=== PATIENT | male | born 1930 | race Caucasian/White ===

== ENCOUNTER 2017-02-02 20:54 | Emergency (ER) | payer MEDICARE, OTHER ==
--- NOTE | 2017-02-02 21:39 | ED ---
Altered Mental Status HPI - General Chief Complaint: Altered Mental Status Stated Complaint: Altered Time Seen by Provider: 02/02/17 21:32 Source: patient, RN notes reviewed Mode of arrival: ambulatory Limitations: no limitations - History of Present Illness Initial Comments: This an 86-year-old male presents emergency department via EMS from [facility] for evaluation of confusion. Patient has baseline confusion secondary to his dementia. Family was concerned that he seemed to be more confused than usual. Patient states he has no specific complaints. Patient had no reported fever. Patient denies cough, chest pain, headache, dizziness, blurred vision, nausea, vomiting diarrhea or constipation, dysuria or hematuria. Patient states he feels that he has his normal self. - Related Data Home Medications Medication Instructions Recorded Confirmed Allopurinol [Zyloprim] 100 mg PO DAILY 09/04/14 02/02/17 Aspirin 81 mg PO DAILY 09/04/14 02/02/17 Lisinopril [Prinivil] 20 mg PO BID@0800,199909/04/14 02/02/17 Acetaminophen [Tylenol] 500 mg PO DAILY 12/06/14 02/02/17 Multivitamin/Iron/Folic Acid 1 tab PO DAILY 04/02/15 02/02/17 [Centrum Complete Multivit Tab] glipiZIDE [Glucotrol] 5 mg PO BID 04/30/15 02/02/17 traMADol HCL [Ultram] 50 mg PO Q4HR PRN 04/30/15 02/02/17 Levothyroxine Sodium [Synthroid] 25 mcg PO DAILY 06/11/15 02/02/17 Pravastatin Sodium 80 mg PO HS 06/11/15 02/02/17 Cholecalciferol [Vitamin D3] 2,000 unit PO DAILY 02/02/17 02/02/17 Ferrous Sulfate [Feosol] 325 mg PO DAILY 02/02/17 02/02/17 Furosemide [Lasix] 40 mg PO DAILY 02/02/17 02/02/17 Magnesium Hydroxide [Milk of 2,400 mg PO Q72H PRN 02/02/17 02/02/17 Magnesia] Metoprolol Tartrate [Lopressor] 50 mg PO BID 02/02/17 02/02/17 Hdhfkkoy-Qvhpfqayff-Otli Oint 1 applic TOPICAL 02/02/17 02/02/17 [Triple Antibiotic Ointment] Sennosides-Docusate Sodium 1 tab PO BID PRN 02/02/17 02/02/17 [Senokot-S] sitaGLIPtin [Januvia] 50 mg PO DAILY 02/02/17 02/02/17 Previous Rx's Medication Instructions Recorded Apixaban [Eliquis] 2.5 mg PO BID tablet 12/26/14 Docusate [Colace] 100 mg PO DAILY cap 04/25/15 Tamsulosin [Flomax] 0.4 mg PO DAILY cap.er.24h 04/25/15 Allergies Allergy/AdvReac Type Severity Reaction Status Date / Time codeine Allergy Rash/Hives Verified 02/02/17 21:30 Review of Systems ROS Statement: Those systems with pertinent positive or pertinent negative responses have been documented in the HPI. ROS Other: All systems not noted in ROS Statement are negative. Past Medical History Past Medical History: Atrial Fibrillation, Atrial Flutter, Coronary Artery Disease (CAD), Dementia, Diabetes Mellitus, Hyperlipidemia, Hypertension, Memory Impairment, Myocardial Infarction (DE), Osteoarthritis (OA), Prostate Disorder, Renal Disease, Skin Disorder, Thyroid Disorder, Vascular Disorder Additional Past Medical History / Comment(s): ALZHEIMER'S, SACRAL PRESSURE ULCER., GOUT, PVD/PAD. , PT USES WHEELCHAIR BUT CAN WALK -USES WALKER., Last Myocardial Infarction Date:: 4614-0640? History of Any Multi-Drug Resistant Organisms: MRSA Date of last positivie culture/infection: 06/06/15 MDRO Source:: Back-Sacral Area Past Surgical History: Appendectomy, Coronary Bypass/CABG, Heart Catheterization , Tonsillectomy Additional Past Surgical History / Comment(s): 04-21-15 RT FEMORAL TO POST TIBIAL IN SITU BYPASS GRAFT., KWADWO, 2000 Triple CABG , MITRAL VALVE REPAIR. Past Anesthesia/Blood Transfusion Reactions: No Reported Reaction Past Psychological History: No Psychological Hx Reported Smoking Status: Never smoker Past Alcohol Use History: None Reported Past Drug Use History: None Reported - Past Family History Father Family Medical History: No Reported History Mother Family Medical History: No Reported History Brother(s) Family Medical History: No Reported History Sister(s) Family Medical History: No Reported History Daughter(s) Family Medical History: No Reported History Son(s) Family Medical History: No Reported History General Exam Limitations: no limitations General appearance: alert, in no apparent distress Head exam: Present: atraumatic, normocephalic, normal inspection Eye exam: Present: normal appearance, PERRL, EOMI. Absent: scleral icterus, conjunctival injection, periorbital swelling ENT exam: Present: normal exam, normal oropharynx, mucous membranes moist Neck exam: Present: normal inspection, full ROM. Absent: tenderness, meningismus, lymphadenopathy Respiratory exam: Present: normal lung sounds bilaterally. Absent: respiratory distress, wheezes, rales, rhonchi, stridor Cardiovascular Exam: Present: regular rate, normal rhythm, normal heart sounds. Absent: systolic murmur, diastolic murmur, rubs, gallop, clicks GI/Abdominal exam: Present: soft, normal bowel sounds. Absent: distended, tenderness, guarding, rebound, rigid Neurological exam: Present: alert, CN II-XII intact. Absent: oriented X3 Skin exam: Present: warm, dry, intact, normal color. Absent: rash Course Vital Signs 02/02/17 02/02/17 21:17 22:58 Temperature 97.9 F 98.9 F Pulse Rate 73 63 Respiratory 20 17 Rate Blood Pressure 135/74 117/70 O2 Sat by Pulse 95 95 Oximetry Medical Decision Making - Medical Decision Making 76-year-old male present emergency from for increased confusion. Patient lab work is at his baseline at this time. Patient had repeat troponin secondary to minimal elevation and which second troponin was within normal limits.. Patient' s confusion is related to his dementia at this time. Case discussed with Dr. bocanegra. Patient we discharged back to [facility]. - Lab Data Result diagrams: 02/02/17 21:32 02/02/17 21:32 Lab Results 02/02/17 02/02/17 02/02/17 Range/Units 21:32 21:32 21:32 WBC 9.1 (3.8-10.6) k/uL RBC 3.76 L (4.30-5.90) m/uL Hgb 12.5 L (13.0-17.5) gm/dL Hct 35.6 L (39.0-53.0) % MCV 94.7 (80.0-100.0) fL MCH 33.3 (25.0-35.0) pg MCHC 35.1 (31.0-37.0) g/dL RDW 12.7 (11.5-15.5) % Plt Count 120 L (150-450) k/uL PT (9.0-12.0) sec INR (<1.2) APTT (22.0-30.0) sec Sodium 141 (137-145) mmol/L Potassium 4.9 (3.5-5.1) mmol/L Chloride 104 (98-107) mmol/L Carbon Dioxide 28 (22-30) mmol/L Anion Gap 9 mmol/L BUN 49 H (9-20) mg/dL Creatinine 1.61 H (0.66-1.25) mg/dL Est GFR (MDRD) Af Amer 49 (>60 ml/min/1.73 sqM) Est GFR (MDRD) Non-Af 41 (>60 ml/min/1.73 sqM) Glucose 108 H (74-99) mg/dL Calcium 9.7 (8.4-10.2) mg/dL Total Bilirubin 0.8 (0.2-1.3) mg/dL AST 41 (17-59) U/L ALT 40 (21-72) U/L Alkaline Phosphatase 121 (38-126) U/L Total Creatine Kinase 836 H (55-170) U/L CK-MB (CK-2) 15.1 H* (0.0-2.4) ng/mL CK-MB (CK-2) Rel Index 1.8 Troponin I 0.037 H* (0.000-0.034) ng/mL Total Protein 7.0 (6.3-8.2) g/dL Albumin 4.0 (3.5-5.0) g/dL Urine Color Urine Appearance (Clear) Urine pH (5.0-8.0) Ur Specific [place] (1.001-1.035) Urine Protein (Negative) Urine Glucose (UA) (Negative) Urine Ketones (Negative) Urine Blood (Negative) Urine Nitrite (Negative) Urine Bilirubin (Negative) Urine Urobilinogen (<2.0) mg/dL Ur Leukocyte Esterase (Negative) 02/02/17 02/02/17 02/03/17 Range/Units 21:32 21:51 00:33 WBC (3.8-10.6) k/uL RBC (4.30-5.90) m/uL Hgb (13.0-17.5) gm/dL Hct (39.0-53.0) % MCV (80.0-100.0) fL MCH (25.0-35.0) pg MCHC (31.0-37.0) g/dL RDW (11.5-15.5) % Plt Count (150-450) k/uL PT 10.8 (9.0-12.0) sec INR 1.1 (<1.2) APTT 25.3 (22.0-30.0) sec Sodium (137-145) mmol/L Potassium (3.5-5.1) mmol/L Chloride (98-107) mmol/L Carbon Dioxide (22-30) mmol/L Anion Gap mmol/L BUN (9-20) mg/dL Creatinine (0.66-1.25) mg/dL Est GFR (MDRD) Af Amer (>60 ml/min/1.73 sqM) Est GFR (MDRD) Non-Af (>60 ml/min/1.73 sqM) Glucose (74-99) mg/dL Calcium (8.4-10.2) mg/dL Total Bilirubin (0.2-1.3) mg/dL AST (17-59) U/L ALT (21-72) U/L Alkaline Phosphatase (38-126) U/L Total Creatine Kinase (55-170) U/L CK-MB (CK-2) (0.0-2.4) ng/mL CK-MB (CK-2) Rel Index Troponin I 0.034 (0.000-0.034) ng/mL Total Protein (6.3-8.2) g/dL Albumin (3.5-5.0) g/dL Urine Color Yellow Urine Appearance Clear (Clear) Urine pH 5.5 (5.0-8.0) Ur Specific [place] 1.013 (1.001-1.035) Urine Protein Trace H (Negative) Urine Glucose (UA) Negative (Negative) Urine Ketones Negative (Negative) Urine Blood Negative (Negative) Urine Nitrite Negative (Negative) Urine Bilirubin Negative (Negative) Urine Urobilinogen <2.0 (<2.0) mg/dL Ur Leukocyte Esterase Negative (Negative) Disposition Clinical Impression: Dementia, Chronic renal disease Disposition: HOME SELF-CARE Condition: Stable Instructions: Dementia (ED) Additional Instructions: Please return to the Emergency Department if symptoms worsen or any other concerns. Referrals: Kaiden Khan MD [Primary Care Provider] - 1-2 days Time of Disposition: 01:51
[2017-02-02 22:20] LABS: Appearance,Urine Clear (Clear); Bilirubin,Urine Negative (Negative); Glucose,Urine (UA) Negative (Negative); Ketones,Urine Negative (Negative); Leukocyte Esterase,Urine Negative (Negative); Nitrite,Urine Negative (Negative); PH, Urine 5.5 (5.0-8.0); Protein,Urine Trace (Negative); Specific Gravity,Urine 1.013 (1.001-1.035); UA Billing (MACRO vs. MICRO) CHEM; Urobilinogen,Urine <2.0 mg/dL (<2.0)
[2017-02-02 22:29] LABS: CH 31.7; CHCM 33.6; HCT 35.6 % (39.0-53.0); HDW 2.31; HGB 12.5 gm/dL (13.0-17.5); MCH 33.3 pg (25.0-35.0); MCHC 35.1 g/dL (31.0-37.0); MCV 94.7 fL (80.0-100.0); Mean Platelet Volume 10.1; RBC 3.76 m/uL (4.30-5.90); RDW 12.7 % (11.5-15.5); WBC 9.1 k/uL (3.8-10.6)
[2017-02-02 22:30] LABS: Calcium 9.7 mg/dL (8.4-10.2); Potassium 4.9 mmol/L (3.5-5.1); Total Bilirubin 0.8 mg/dL (0.2-1.3)
[2017-02-02 22:36] LABS: INR 1.1 (<1.2); Partial Thromboplastin Time 25.3 sec (22.0-30.0); Prothrombin Time 10.8 sec (9.0-12.0)
[2017-02-02 22:58] VITALS: TEMP 98.9
[2017-02-02 23:10] LABS: Creatine Kinase MB 15.1 ng/mL (0.0-2.4); Troponin I 0.037 ng/mL (0.000-0.034)
--- NOTE | 2017-02-02 23:14 | XR ---
EXAM: XR Chest, 2 Views CLINICAL HISTORY: Reason: AMS TECHNIQUE: Frontal and lateral views of the chest. COMPARISON: Chest x-ray 04/23/15 FINDINGS: Lungs: Unremarkable. No consolidation. Pleural space: Unremarkable. No pneumothorax. Heart: Stable mild cardiac enlargement. Status post cardiac valve replacement. Mediastinum: Unfolded thoracic aorta. Bones/joints: No acute abnormality. IMPRESSION: No acute findings. Stable mild cardiac enlargement.
--- NOTE | 2017-02-02 23:30 | CT ---
EXAM: CT Head Without Intravenous Contrast CLINICAL HISTORY: Reason: pain TECHNIQUE: Axial computed tomography images of the head/brain without intravenous contrast. Coronal and sagittal reformats were obtained. CTDI is 57.40 mGy and DLP is 1081.60 mGy-cm. This CT exam was performed using one or more of the following dose reduction techniques: automated exposure control, adjustment of the mA and/or kV according to patient size, and/or use of iterative reconstruction technique. COMPARISON: CT head 08/05/15 FINDINGS: Brain: No intracranial hemorrhage, mass effect, or midline shift. Global volume loss, appropriate for age. Periventricular white matter hypodensities, likely chronic small vessel disease. Ventricles: Serosal and ventricular prominence secondary to global volume loss. Bones/joints: Unremarkable. No acute fracture. Vasculature: Prominent vascular calcifications. Sinuses: Diffuse paranasal sinus mucosal thickening. Mastoid air cells: Unremarkable as visualized. No mastoid effusion. IMPRESSION: 1. No acute intracranial abnormality. 2. Global volume loss, appropriate for age. 3. Periventricular white matter hypodensities, likely chronic small vessel disease. 4. Diffuse paranasal sinus disease.
[2017-02-03 02:01] VITALS: BP 152/84
[2017-02-03 03:10] VITALS: PULSE 71; RESP 16
== END 2017-02-03 03:19 | disposition home or self-care (01) ==
LOC: EC 20:54
DX: F03.90 Unspecified dementia, unspecified severity, without behavioral disturbance, psychotic disturbance, mood disturbance, and anxiety (principal); E11.22 Type 2 diabetes mellitus with diabetic chronic kidney disease; I12.9 Hypertensive chronic kidney disease with stage 1 through stage 4 chronic kidney disease, or unspecified chronic kidney disease; N18.9 Chronic kidney disease, unspecified; I48.91 Unspecified atrial fibrillation; I25.10 Atherosclerotic heart disease of native coronary artery without angina pectoris; E78.5 Hyperlipidemia, unspecified; I25.2 Old myocardial infarction; E07.9 Disorder of thyroid, unspecified; M19.90 Unspecified osteoarthritis, unspecified site; Z79.82 Long term (current) use of aspirin; Z79.84 Long term (current) use of oral hypoglycemic drugs; Z79.899 Other long term (current) drug therapy; Z88.5 Allergy status to narcotic agent
CPT/HCPCS: 36415; 70450; 71020; 80053; 81003; 82550; 82553; 84484; 85027; 85610; 85730; 99285

== ENCOUNTER 2017-03-02 02:36 | Inpatient (IN) | payer MEDICARE, OTHER ==
[2017-03-02 05:56] LABS: Calcium 9.7 mg/dL (8.4-10.2); Potassium 4.9 mmol/L (3.5-5.1); Total Bilirubin 0.6 mg/dL (0.2-1.3); Total Protein 6.9 g/dL (6.3-8.2)
[2017-03-02 05:58] LABS: Creatine Kinase MB 2.7 ng/mL (0.0-2.4)
[2017-03-02 06:14] LABS: Basophils # (A) 0.1 k/uL (0-0.2); Basophils % (A) 1 %; CH 32.1; CHCM 32.6; Eosinophils # (A) 0.4 k/uL (0-0.7); Eosinophils % (A) 5 %; HCT 39.1 % (39.0-53.0); HDW 2.41; HGB 12.6 gm/dL (13.0-17.5); Luc # (Auto) 0.15; Luc % (Auto) 2; Lymphocytes # (A) 0.8 k/uL (1.0-4.8); Lymphocytes % (A) 10 %; MCHC 32.3 g/dL (31.0-37.0); Mean Platelet Volume 9.4; Monocytes # (A) 0.6 k/uL (0-1.0); Monocytes % (A) 7 %; Neutrophils % (A) 75 %; RBC 3.95 m/uL (4.30-5.90); WBC (Perox) 7.82
--- NOTE | 2017-03-02 06:51 | CT ---
CT HEAD WITHOUT CONTRAST CT C SPINE WITHOUT CONTRAST INDICATION: Fall, pain TECHNIQUE: CT acquisition is performed through the brain and cervical spine. Sagittal and coronal reformatted images are provided. No IV contrast is administered. DOSE INFORMATION: CT HEAD: CTDIvol 57.40 mGy; DLP 1133.30 mGy-cm. CT C SPINE: CTDIvol 10.54 mGy; DLP 564.70 mGy-cm. One or more of the following dose reduction techniques were used: automated exposure control, adjustment of the mA and/or kV according to patient size, use of iterative reconstruction technique. COMPARISON: CT head 02/02/17. FINDINGS: CT HEAD: There is paranasal sinus mucosal thickening and clear mastoid air cells. There is mild high left parietal scalp swelling. There is no evidence of skull fracture. There is no evidence of acute intracranial hemorrhage or abnormal extra-axial fluid collection. There is no mass effect or midline shift. There are involutional changes with prominence of the sulci and basal cisterns. The ventricles are normal. There is patchy hypoattenuation in the periventricular and deep cerebral white matter, likely related to chronic small vessel ischemic disease. Chronic lacunar infarct in the right thalamus. More-white matter differentiation appears preserved. CT C SPINE: There is straightening of the cervical spine. There is no evidence of acute fracture or subluxation. Vertebral body height and alignment are maintained. Craniocervical and atlantoaxial relationships are maintained. Cervical spinal canal is adequately patent. There is degenerative disc disease at C5-C6 and C6-C7. There is no prevertebral soft tissue swelling. Lung apices are clear. IMPRESSION: 1. No evidence of acute intracranial process. Mild high left parietal scalp swelling without skull fracture. 2. No evidence of acute fracture in the cervical spine.
--- NOTE | 2017-03-02 07:52 | CT ---
INDICATION: Possible aneurysm TECHNIQUE: CT acquisition is performed through the chest per institutional CT angiogram protocol following the administration of 80 mL Visipaque 320 IV contrast. Sagittal and coronal reformatted images and MIP reconstructed images are provided. DOSE INFORMATION: CTDIvol 206.13 mGy; DLP 1226 mGy-cm. One or more of the following dose reduction techniques were used: automated exposure control, adjustment of the mA and/or kV according to patient size, use of iterative reconstruction technique. COMPARISON: None. FINDINGS: There has been previous midline sternotomy and CABG with mitral valve prosthesis. There is cardiomegaly without pericardial effusion. The main pulmonary artery is normal in caliber. Aortic arch demonstrates conventional branching anatomy. There is thoracic aortic atherosclerosis. There is an aneurysm of the ascending thoracic aorta measuring 5.1 cm. There is ectasia of the remainder of the thoracic aorta which measures 4 cm at the arch, 4.2 cm in the proximal descending portion, and 3.7 cm in the distal descending portion. In the descending thoracic aorta there is differential contrast density with lower density in the anterior lumen and hyperdensity in the posterior lumen, visible on images 26 through 48 of series 5. This most likely represents mixing artifact versus type B dissection which is considered less likely. The abdominal aorta is heavily calcified but without aneurysm. Small multicompartment mediastinal lymph nodes are not significant by size criteria. Expiratory phase images with atelectatic changes of the lungs. No pleural effusion or pneumothorax. Visualized upper abdomen demonstrates cholelithiasis without evidence of acute cholecystitis. There are no acute osseous findings. IMPRESSION: 1. 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 Normal caliber abdominal aorta. Extensive atherosclerosis. 2. Probable mixing artifact versus, less likely, type B dissection of the descending thoracic aorta. 3. Cardiomegaly status post CABG and mitral valve replacement.
[2017-03-02] MEDS ORDERED: MAGNESIUM HYDROXIDE 2,400 MG/10 ML CUP PO PRN (10:42)
[2017-03-02] MEDS ORDERED: SENNOSIDES-DOCUSATE SODIUM 1 EACH TAB PO PRN (10:42)
[2017-03-02 11:26] VITALS: BMI 24.3
--- NOTE | 2017-03-02 11:52 | P.GSCN ---
History of Present Illness Consult date: 03/02/17 Reason for Consult: Aortic aneurysm, treatment recommendations. Requesting physician: Matthew Amaya History of present illness: This 86-year-old gentleman with a medical history of chronic atrial fibrillation , coronary artery disease with previous bypass surgery, chronic kidney disease, peripheral vascular disease, Alzheimer's dementia, diabetes, hypertension, and hyperlipidemia presented to the emergency room last night from [facility] after an unwitnessed fall. Apparently he is on anticoagulation for chronic atrial fibrillation and the attending physician wanted a CT scan to make sure the patient didn't have any traumatic bleeding. CT scan of the brain done in the emergency room demonstrated no acute process, no fractures. CT of the thorax demonstrated an ascending aneurysm measuring 5.1 cm and a descending thoracic aneurysm with questionable Type B dissection per the radiologist's read. Cardiothoracic surgery was consulted regarding treatment recommendations. Review of Systems ROS unobtainable: due to mental status Past Medical History Past Medical History: Atrial Fibrillation, Atrial Flutter, Coronary Artery Disease (CAD), Heart Failure, Dementia, Diabetes Mellitus, Hyperlipidemia, Hypertension, Memory Impairment, Myocardial Infarction ([place]), Osteoarthritis (OA) , Prostate Disorder, Renal Disease, Skin Disorder, Thyroid Disorder, Vascular Disorder Additional Past Medical History / Comment(s): ALZHEIMER'S, SACRAL PRESSURE ULCER., GOUT, PVD/PAD. , PT USES WHEELCHAIR BUT CAN WALK -USES WALKER., Last Myocardial Infarction Date:: 4396-5827? History of Any Multi-Drug Resistant Organisms: MRSA Year Discovered:: 06/06/15 MDRO Source:: Back-Sacral Area Past Surgical History: Appendectomy, Coronary Bypass/CABG, Heart Catheterization , Tonsillectomy Additional Past Surgical History / Comment(s): 04-21-15 RT FEMORAL TO POST TIBIAL IN SITU BYPASS GRAFT., [place]WADWO, 2000 Triple CABG , MITRAL VALVE REPAIR. Past Anesthesia/Blood Transfusion Reactions: No Reported Reaction Past Psychological History: No Psychological Hx Reported Smoking Status: Never smoker Past Alcohol Use History: None Reported Past Drug Use History: None Reported - Past Family History Father Family Medical History: No Reported History Mother Family Medical History: No Reported History Brother(s) Family Medical History: No Reported History Sister(s) Family Medical History: No Reported History Daughter(s) Family Medical History: No Reported History Son(s) Family Medical History: No Reported History Medications and Allergies Home Medications Medication Instructions Recorded Confirmed Type Allopurinol [Zyloprim] 100 mg PO DAILY 09/04/14 03/02/17 History Aspirin 81 mg PO DAILY 09/04/14 03/02/17 History Lisinopril [Prinivil] 20 mg PO BID@0800,2000 09/04/14 03/02/17 History Acetaminophen [Tylenol] 500 mg PO DAILY 12/06/14 03/02/17 History Apixaban [Eliquis] 2.5 mg PO BID tablet 12/26/14 03/02/17 Rx Multivitamin/Iron/Folic Acid 1 tab PO DAILY 04/02/15 03/02/17 History [Centrum Complete Multivit Tab] Docusate [Colace] 100 mg PO DAILY cap 04/25/15 03/02/17 Rx Tamsulosin [Flomax] 0.4 mg PO DAILY cap.er.24h 04/25/15 03/02/17 Rx glipiZIDE [Glucotrol] 5 mg PO BID 04/30/15 03/02/17 History traMADol HCL [Ultram] 50 mg PO Q4HR PRN 04/30/15 03/02/17 History Levothyroxine Sodium [Synthroid] 25 mcg PO DAILY 06/11/15 03/02/17 History Pravastatin Sodium 80 mg PO HS 06/11/15 03/02/17 History Cholecalciferol [Vitamin D3] 2,000 unit PO DAILY 02/02/17 03/02/17 History Ferrous Sulfate [Feosol] 325 mg PO DAILY 02/02/17 03/02/17 History Furosemide [Lasix] 40 mg PO MOWEFR 02/02/17 03/02/17 History Magnesium Hydroxide [Milk of 2,400 mg PO Q72H PRN 02/02/17 03/02/17 History Magnesia] Metoprolol Tartrate [Lopressor] 50 mg PO BID 02/02/17 03/02/17 History Sennosides-Docusate Sodium 1 tab PO BID PRN 02/02/17 03/02/17 History [Senokot-S] sitaGLIPtin [Januvia] 50 mg PO DAILY 02/02/17 03/02/17 History Allergies Allergy/AdvReac Type Severity Reaction Status Date / Time codeine Allergy Rash/Hives Verified 03/02/17 07:38 Surgical - Exam - General well developed, no distress, no pain - Eyes PERRL - Neck no masses, no bruits, trachea midline - Respiratory Lungs sounds bilaterally. Respirations even, nonlabored. Currently on 2 L nasal cannula. - Cardiovascular S1, S2 present. Irregular rate and rhythm, atrial fibrillation on telemetry. Palpable radial, DP, PT pulses bilaterally. 2-3+ pitting edema to bilateral lower extremities. - Abdomen Abdomen: soft, non tender, bowel sounds - Genitourinary Deferred - Rectum Deferred - Integumentary no rash - Neurologic disoriented, confused - Psychiatric Able to tell me the year he was born, unable to tell me his full name, his ' s name, where he is at or the current year. Results - Labs 03/02/17 03:35 03/02/17 03:35 Abnormal Lab Results - Last 24 Hours (Table) 03/02/17 03/02/17 03/02/17 Range/Units 03:35 03:35 03:35 RBC 3.95 L (4.30-5.90) m/uL Hgb 12.6 L (13.0-17.5) gm/dL Plt Count 130 L (150-450) k/uL Lymphocytes # 0.8 L (1.0-4.8) k/uL BUN 38 H (9-20) mg/dL Creatinine 1.40 H (0.66-1.25) mg/dL Glucose 140 H (74-99) mg/dL Alkaline Phosphatase 147 H (38-126) U/L CK-MB (CK-2) 2.7 H* (0.0-2.4) ng/mL Diabetes panel 03/02/17 Range/Units 03:35 Sodium 140 (137-145) mmol/L Potassium 4.9 (3.5-5.1) mmol/L Chloride 104 (98-107) mmol/L Carbon Dioxide 27 (22-30) mmol/L BUN 38 H (9-20) mg/dL Creatinine 1.40 H (0.66-1.25) mg/dL Glucose 140 H (74-99) mg/dL Calcium 9.7 (8.4-10.2) mg/dL AST 22 (17-59) U/L ALT 34 (21-72) U/L Alkaline Phosphatase 147 H (38-126) U/L Total Protein 6.9 (6.3-8.2) g/dL Albumin 3.9 (3.5-5.0) g/dL Calcium panel 03/02/17 Range/Units 03:35 Calcium 9.7 (8.4-10.2) mg/dL Albumin 3.9 (3.5-5.0) g/dL Pituitary panel 03/02/17 Range/Units 03:35 Sodium 140 (137-145) mmol/L Potassium 4.9 (3.5-5.1) mmol/L Chloride 104 (98-107) mmol/L Carbon Dioxide 27 (22-30) mmol/L BUN 38 H (9-20) mg/dL Creatinine 1.40 H (0.66-1.25) mg/dL Glucose 140 H (74-99) mg/dL Calcium 9.7 (8.4-10.2) mg/dL Adrenal panel 03/02/17 Range/Units 03:35 Sodium 140 (137-145) mmol/L Potassium 4.9 (3.5-5.1) mmol/L Chloride 104 (98-107) mmol/L Carbon Dioxide 27 (22-30) mmol/L BUN 38 H (9-20) mg/dL Creatinine 1.40 H (0.66-1.25) mg/dL Glucose 140 H (74-99) mg/dL Calcium 9.7 (8.4-10.2) mg/dL Total Bilirubin 0.6 (0.2-1.3) mg/dL AST 22 (17-59) U/L ALT 34 (21-72) U/L Alkaline Phosphatase 147 H (38-126) U/L Total Protein 6.9 (6.3-8.2) g/dL Albumin 3.9 (3.5-5.0) g/dL - Imaging CT scan - chest: report reviewed, image reviewed EKG: image reviewed Additional studies: CT of the brain reviewed Assessment and Plan (1) Chronic atrial fibrillation Current Visit: Yes Status: Acute Code(s): I48.2 - CHRONIC ATRIAL FIBRILLATION SNOMED Code(s): 875260094 (2) Hypertension Current Visit: Yes Status: Acute Code(s): I10 - ESSENTIAL (PRIMARY) HYPERTENSION SNOMED Code(s): 88220638 (3) Hyperlipidemia Current Visit: Yes Status: Acute Code(s): E78.5 - HYPERLIPIDEMIA, UNSPECIFIED SNOMED Code(s): 27721366 (4) Previous myocardial infarction older than 8 weeks Current Visit: Yes Status: Acute Code(s): I25.2 - OLD MYOCARDIAL INFARCTION SNOMED Code(s): 5257390 (5) Hypothyroidism Current Visit: Yes Status: Acute Code(s): E03.9 - HYPOTHYROIDISM, UNSPECIFIED SNOMED Code(s): 47827388 (6) Debility Current Visit: Yes Status: Acute Code(s): R53.81 - OTHER MALAISE SNOMED Code(s): 14664873 (7) Thoracic ascending aortic aneurysm Current Visit: Yes Status: Acute Code(s): I71.2 - THORACIC AORTIC ANEURYSM, WITHOUT RUPTURE SNOMED Code(s): 724094492 (8) Chronic renal disease Current Visit: No Status: Acute Code(s): N18.9 - CHRONIC KIDNEY DISEASE, UNSPECIFIED SNOMED Code(s): 875671936 (9) Dementia Current Visit: No Status: Acute Code(s): F03.90 - UNSPECIFIED DEMENTIA WITHOUT BEHAVIORAL DISTURBANCE SNOMED Code(s): 38576466 (10) Diabetes mellitus Current Visit: No Status: Acute Code(s): E11.9 - TYPE 2 DIABETES MELLITUS WITHOUT COMPLICATIONS SNOMED Code(s): 77159314 (11) PVD (peripheral vascular disease) Current Visit: No Status: Acute Code(s): I73.9 - PERIPHERAL VASCULAR DISEASE , UNSPECIFIED SNOMED Code(s): 434260074 Plan: The patient was seen and examined at the bedside. Chart/diagnostics were reviewed. The case was discussed with Dr. Sorensen of this morning. At this time we would recommend good blood pressure control and medical management. No surgical intervention warranted. May have a follow-up CT scan of the thorax in 3 months to monitor for progression. Of note, even though the patient's systolic blood pressure was elevated in the emergency room, he appears to have good control in the [facility] with noted SBP 117-130 by facility documentation. Comorbid medical conditions to be managed by primary service. Thank you Dr. Amaya for this consult. Please contact us with any questions. Time with Patient: Greater than 30
[2017-03-02 12:07] LABS: Glucose,Whole Blood 139 mg/dL (75-99)
[2017-03-02] MEDS: FUROSEMIDE 40 MG TAB PO SCH (12:20)
[2017-03-02] MEDS: METOPROLOL TARTRATE 25 MG TAB PO SCH ×2 (12:20→20:06)
[2017-03-02] MEDS: LISINOPRIL 10 MG TAB PO SCH (12:20)
--- NOTE | 2017-03-02 12:34 | P.HPIM ---
History of Present Illness H&P Date: 03/02/17 Chief Complaint: fall, change in mental status 86 years old male patient of Dr. 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 Patient is oriented 1 at baseline and requires assistance with food. He does walk with cane at his baseline. Patient presented to the emergency department from [facility] after an unwitnessed fall yesterday. Patient hit back of his head to the cabinet. Patient was sent by the attending physician for computed tomography scan. Computed tomography scan of the brain demonstrated no acute process no fracture but does have mild high left parietal scalp swelling suggestive of superficial hematoma without skull fracture. Cervical spine CT was negative for any acute process. CT of the thorax demonstrated an ascending aneurysm measuring 5.1 cm and a descending thoracic aneurysm with questionable diabetes dissection but the radiologist read. Patient was evaluated by cardiothoracic surgery who recommended medical treatment with no acute requirement of surgical treatment. On bedside evaluation, patient does not follow any commands. He answers questions yes or no. Family is not at bedside. Patient is not able to follow any commands which could be secondary to baseline confusion and worsening mental status. Unclear of the etiology of the fall neurology is consulted for possible stroke versus seizure. Further details will be obtained once the family is at bedside. Review of Systems Could not be obtained due to the mental status and patient unable to follow any instructions Past Medical History Past Medical History: Atrial Fibrillation, Atrial Flutter, Coronary Artery Disease (CAD), Heart Failure, Dementia, Diabetes Mellitus, Hyperlipidemia, Hypertension, Memory Impairment, Myocardial Infarction (IA), Osteoarthritis (OA) , Prostate Disorder, Renal Disease, Skin Disorder, Thyroid Disorder, Vascular Disorder Additional Past Medical History / Comment(s): ALZHEIMER'S, SACRAL PRESSURE ULCER., GOUT, PVD/PAD. , PT USES WHEELCHAIR BUT CAN WALK -USES WALKER., Last Myocardial Infarction Date:: [id number]? History of Any Multi-Drug Resistant Organisms: MRSA Date of last positivie culture/infection: 06/06/15 MDRO Source:: Back-Sacral Area Past Surgical History: Appendectomy, Coronary Bypass/CABG, Heart Catheterization , Tonsillectomy Additional Past Surgical History / Comment(s): 04-21-15 RT FEMORAL TO POST TIBIAL IN SITU BYPASS GRAFT., KWADWO, 2000 Triple CABG , MITRAL VALVE REPAIR. Past Anesthesia/Blood Transfusion Reactions: No Reported Reaction Past Psychological History: No Psychological Hx Reported Smoking Status: Never smoker Past Alcohol Use History: None Reported Past Drug Use History: None Reported - Past Family History Father Family Medical History: No Reported History Mother Family Medical History: No Reported History Brother(s) Family Medical History: No Reported History Sister(s) Family Medical History: No Reported History Daughter(s) Family Medical History: No Reported History Son(s) Family Medical History: No Reported History Medications and Allergies Home Medications Medication Instructions Recorded Confirmed Type Allopurinol [Zyloprim] 100 mg PO DAILY 09/04/14 03/02/17 History Aspirin 81 mg PO DAILY 09/04/14 03/02/17 History Lisinopril [Prinivil] 20 mg PO BID@0800,199909/04/14 03/02/17 History Acetaminophen [Tylenol] 500 mg PO DAILY 12/06/14 03/02/17 History Apixaban [Eliquis] 2.5 mg PO BID tablet 12/26/14 03/02/17 Rx Multivitamin/Iron/Folic Acid 1 tab PO DAILY 04/02/15 03/02/17 History [Centrum Complete Multivit Tab] Docusate [Colace] 100 mg PO DAILY cap 04/25/15 03/02/17 Rx Tamsulosin [Flomax] 0.4 mg PO DAILY cap.er.24h 04/25/15 03/02/17 Rx glipiZIDE [Glucotrol] 5 mg PO BID 04/30/15 03/02/17 History traMADol HCL [Ultram] 50 mg PO Q4HR PRN 04/30/15 03/02/17 History Levothyroxine Sodium [Synthroid] 25 mcg PO DAILY 06/11/15 03/02/17 History Pravastatin Sodium 80 mg PO HS 06/11/15 03/02/17 History Cholecalciferol [Vitamin D3] 2,000 unit PO DAILY 02/02/17 03/02/17 History Ferrous Sulfate [Feosol] 325 mg PO DAILY 02/02/17 03/02/17 History Furosemide [Lasix] 40 mg PO MOWEFR 02/02/17 03/02/17 History Magnesium Hydroxide [Milk of 2,400 mg PO Q72H PRN 02/02/17 03/02/17 History Magnesia] Metoprolol Tartrate [Lopressor] 50 mg PO BID 02/02/17 03/02/17 History Sennosides-Docusate Sodium 1 tab PO BID PRN 02/02/17 03/02/17 History [Senokot-S] sitaGLIPtin [Januvia] 50 mg PO DAILY 02/02/17 03/02/17 History Allergies Allergy/AdvReac Type Severity Reaction Status Date / Time codeine Allergy Rash/Hives Verified 03/02/17 07:38 Physical Exam Vitals: Vital Signs Temp Pulse Resp BP Pulse Ox 03/02/17 09:55 97.8 F 94 16 125/67 96 Intake and Output 03/01/17 03/02/17 03/02/17 22:59 06:59 14:59 Other: Weight 86 kg Patient Weight 03/03/17 06:59 Weight 86 kg - Constitutional General appearance: average body habitus, mild distress - EENT Eyes: abnormal pupil (1-2 mm in size), PERRLA ENT: normal oropharynx - Neck Neck: no lymphadenopathy, normal ROM, no rigidity Carotids: bilateral: upstroke delayed - Respiratory Respiratory: bilateral: CTA, negative: diminished, dullness, rales, rhonchi - Cardiovascular Rhythm: irregularly irregular Heart sounds: normal: S1, S2 Abnormal Heart Sounds: systolic murmur, no diastolic murmur leg Peripheral Edema: bilateral: Trace, 3+ dorsalis pedis Peripheral Pulses: bilateral: Normal - Gastrointestinal General gastrointestinal: no distended, normal bowel sounds, no organomegaly, soft - Neurologic Pupils are equal and reactive, patient does not follow any commands, does answer yes to all the questions, stairs at the roof. Oriented 1 at baseline Does squeeze fingers in the right hand but is unable to make any movement. 2/5 in left upper extremity and lower extremity, 3/5 in the right upper extremity and lower extremity. Patient does not wiggle his toes on command. Slight murmur noted in the lower extremities on painful stimuli. Sensory deficit could not be assessed. Gait not if assessed coordination not assessed Babinski neutral. - Musculoskeletal Musculoskeletal: generalized weakness - Psychiatric Alert but not oriented Results CBC & Chem 7: 03/02/17 03:35 03/02/17 03:35 Labs: Abnormal Lab Results - Last 24 Hours (Table) 03/02/17 03/02/17 03/02/17 Range/Units 03:35 03:35 03:35 RBC 3.95 L (4.30-5.90) m/uL Hgb 12.6 L (13.0-17.5) gm/dL Plt Count 130 L (150-450) k/uL Lymphocytes # 0.8 L (1.0-4.8) k/uL BUN 38 H (9-20) mg/dL Creatinine 1.40 H (0.66-1.25) mg/dL Glucose 140 H (74-99) mg/dL Alkaline Phosphatase 147 H (38-126) U/L CK-MB (CK-2) 2.7 H* (0.0-2.4) ng/mL Thrombosis Risk Factor Assmnt - DVT/VTE Prophylaxis DVT/VTE Prophylaxis: Mechanical Prophylaxis ordered - Choose All That Apply Any of the Below Risk Factors Present?: Yes Each Factor Represents 1 point: Medical pt on bed rest Each Risk Factor Represents 2 Points: Patient confined to bed Each Risk Factor Represents 3 Points: Age 75 years or older Other congenital or acquired thrombophilia - If yes, enter type in comment: No Thrombosis Risk Factor Assessment Total Risk Factor Score: 6 Thrombosis Risk Factor Assessment Level: High Risk Assessment and Plan Plan: #1 change in mental status with baseline dementia status post unwitnessed fall - Unclear to assess patient's baseline, no purposeful movement in any extremity - CT head was negative for any bleed but does have a hematoma in the left parietal scalp area - Neurology consulted - Seizure precaution and fall precautions - elliquis and aspirin held secondary to hematoma - Continue pravastatin - Speech evaluation - Carotid ultrasound ordered Neuro checks every 4 hours - Neurology consult #2 ascending aortic 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 #4 diabetes mellitus type 2 - Causes are 10 and glipizide while inpatient Continue insulin sliding scale #4 hyperlipidemia - Continue pravastatin 80 mg daily at bedtime #5 chronic atrial fibrillation - Patient has dementia and significant fall risk - This patient has a hematoma I would hold elliquis and aspirin while inpatient and would recommend sending patient home without continue metoprolol 75 mg by mouth twice a day for heartrate controlled #6 benign prostate enlargement continue tamsulosin daily #7 continue allopurinol 100 mg by mouth daily #8 coronary artery disease status post coronary artery bypass grafting - Hold aspirin due to hematoma, continue metoprolol, Lasix pravastatin and lisinopril - Echo ordered #Chronic pain - For tramadol for concern of seizures continue Tylenol for pain control #11 hypothyroidism continue levothyroxine #12 DVT prophylaxis continue mechanical prophylaxis #13 condition- stable #14 disposition- patient came from [facility], needs PT evalaution
[2017-03-02] MEDS: INSULIN LISPRO (humaLOG) 300 UNIT/3 ML VIAL SQ SCH ×2 (12:36→18:13)
--- NOTE | 2017-03-02 15:13 | US ---
EXAMINATION TYPE: US carotid duplex BILAT DATE OF EXAM: 03/02/2017 COMPARISON: NONE CLINICAL HISTORY: Change in mental status, exam done portable EXAM MEASUREMENTS: RIGHT: Peak Systolic Velocity (PSV) cm/sec ----- Right CCA: 96.9 ----- Right ICA: 111.4 ----- Right ECA: 143.6 ICA/CCA ratio: 1.2 RIGHT: End Diastole cm/sec ----- Right CCA: 19.8 ----- Right ICA: 19.8 ----- Right ECA: 7.9 LEFT: Peak Systolic Velocity (PSV) cm/sec ----- Left CCA: 82.5 ----- Left ICA: 157.8 ----- Left ECA: 204.8 ICA/CCA ratio: 1.9 LEFT: End Diastole cm/sec ----- Left CCA: 15.4 ----- Left ICA: 43.3 ----- Left ECA: 0.0 VERTEBRALS (direction of flow): Right Vertebral: Antegrade Left Vertebral: Antegrade Rhythm: Arrhythmia Plaque bilateral bulb Grayscale, color Doppler, spectral Doppler imaging performed of the carotid arteries. IMPRESSION: Borderline hemodynamic significant stenosis of the proximal internal carotid artery on t he left corresponding to approximately 50-69% diameter reduction by Doppler criteria. Consider rangel tid CTA or MRA for better evaluation. Cardiac arrhythmia identified Criteria for Assigning % of Stenosis / Diameter reduction (Estimation based on the indirect measurements of the internal carotid artery velocities (ICA PSV). 1. Normal (no stenosis)=ICA PSV < 125 cm/s: ratio < 2.0: ICA EDV<40 cm/s. 2. Less than 50% stenosis=ICA PSV < 125 cm/s: ratio < 2.0: ICA EDV<40 cm/s. 3. 50 to 69% stenosis=ICA PSV of 125 to 230 cm/s: ration 2.0 ? 4.0: ICA EDV 40-100 cm/s. 4. Greater than 70% stenosis to near occlusion= ICA PSV > 230 cm/s: ratio > 4.0: ICA EDV > 100 cm/s. 5. Near occlusion= ICA PSV velocities may be low or undetectable: variable ratio and ICA EDV. 6. Total occlusion=unable to detect flow.
[2017-03-02 16:35] LABS: Glucose,Whole Blood 146 mg/dL (75-99)
[2017-03-02] MEDS: hydrALAZINE HCL 20 MG/ML 1 ML VIAL IVP PRN (19:00)
--- NOTE | 2017-03-02 19:18 | P.CNNES ---
History of Present Illness Consult date: 03/02/17 History of Present Illness: The patient is an 86-year-old man a resident of [facility] with multiple medical problems who was brought into the emergency room today because of a fall which was unwitnessed. He the patient hit his head on a cabinet. He had a CAT scan of the brain which showed a high left parietal scalp swelling. There is no evidence of an acute hemorrhage or stroke. He also had a cervical CT which was unremarkable. At a carotid ultrasound which showed some left ICA stenosis. 50-69% stenosis on the left. She does have a remote right subcortical infarct. She is unable to give any history. He has dementia. He does not follow commands well. Review of Systems ROS unobtainable: due to mental status Past Medical History Past Medical History: Atrial Fibrillation, Atrial Flutter, Coronary Artery Disease (CAD), Heart Failure, Dementia, Diabetes Mellitus, Hyperlipidemia, Hypertension, Memory Impairment, Myocardial Infarction (AL), Osteoarthritis (OA) , Prostate Disorder, Renal Disease, Skin Disorder, Thyroid Disorder, Vascular Disorder Additional Past Medical History / Comment(s): ALZHEIMER'S, SACRAL PRESSURE ULCER., GOUT, PVD/PAD. , PT USES WHEELCHAIR BUT CAN WALK -USES WALKER., Last Myocardial Infarction Date:: [id number]? History of Any Multi-Drug Resistant Organisms: MRSA Date of last positivie culture/infection: 06/06/15 MDRO Source:: Back-Sacral Area Past Surgical History: Appendectomy, Coronary Bypass/CABG, Heart Catheterization , Tonsillectomy Additional Past Surgical History / Comment(s): 04-21-15 RT FEMORAL TO POST TIBIAL IN SITU BYPASS GRAFT., KWADWO, 2000 Triple CABG , MITRAL VALVE REPAIR. Past Anesthesia/Blood Transfusion Reactions: No Reported Reaction Past Psychological History: No Psychological Hx Reported Smoking Status: Never smoker Past Alcohol Use History: None Reported Past Drug Use History: None Reported - Past Family History Father Family Medical History: No Reported History Mother Family Medical History: No Reported History Brother(s) Family Medical History: No Reported History Sister(s) Family Medical History: No Reported History Daughter(s) Family Medical History: No Reported History Son(s) Family Medical History: No Reported History Medications and Allergies Home Medications Medication Instructions Recorded Confirmed Type Allopurinol [Zyloprim] 100 mg PO DAILY 09/04/14 03/02/17 History Aspirin 81 mg PO DAILY 09/04/14 03/02/17 History Lisinopril [Prinivil] 20 mg PO BID@0800,2000 09/04/14 03/02/17 History Acetaminophen [Tylenol] 500 mg PO DAILY 12/06/14 03/02/17 History Apixaban [Eliquis] 2.5 mg PO BID tablet 12/26/14 03/02/17 Rx Multivitamin/Iron/Folic Acid 1 tab PO DAILY 04/02/15 03/02/17 History [Centrum Complete Multivit Tab] Docusate [Colace] 100 mg PO DAILY cap 04/25/15 03/02/17 Rx Tamsulosin [Flomax] 0.4 mg PO DAILY cap.er.24h 04/25/15 03/02/17 Rx glipiZIDE [Glucotrol] 5 mg PO BID 04/30/15 03/02/17 History traMADol HCL [Ultram] 50 mg PO Q4HR PRN 04/30/15 03/02/17 History Levothyroxine Sodium [Synthroid] 25 mcg PO DAILY 06/11/15 03/02/17 History Pravastatin Sodium 80 mg PO HS 06/11/15 03/02/17 History Cholecalciferol [Vitamin D3] 2,000 unit PO DAILY 02/02/17 03/02/17 History Ferrous Sulfate [Feosol] 325 mg PO DAILY 02/02/17 03/02/17 History Furosemide [Lasix] 40 mg PO MOWEFR 02/02/17 03/02/17 History Magnesium Hydroxide [Milk of 2,400 mg PO Q72H PRN 02/02/17 03/02/17 History Magnesia] Metoprolol Tartrate [Lopressor] 50 mg PO BID 02/02/17 03/02/17 History Sennosides-Docusate Sodium 1 tab PO BID PRN 02/02/17 03/02/17 History [Senokot-S] sitaGLIPtin [Januvia] 50 mg PO DAILY 02/02/17 03/02/17 History Allergies Allergy/AdvReac Type Severity Reaction Status Date / Time codeine Allergy Rash/Hives Verified 03/02/17 07:38 Physical Examination - Vital Signs Vital Signs: Vital Signs Temp Pulse Resp BP Pulse Ox 03/02/17 18:12 159/82 03/02/17 16:00 99 F 86 16 140/94 97 03/02/17 12:10 100 16 123/65 97 03/02/17 09:55 97.8 F 94 16 125/67 96 Intake and Output 03/02/17 03/02/17 03/02/17 06:59 14:59 22:59 Intake Total 120 Balance 120 Intake: Oral 120 Other: # Voids 2 Weight 86 kg Patient Weight 03/03/17 06:59 Weight 86 kg - Constitutional General appearance: average body habitus - EENT EENT: PERRL - Respiratory Respiratory: lungs clear - Cardiovascular Cardiovascular: regular rate - Neurologic Mental status: Patient was awake he answered yes he did not follow commands . There was no obvious a aphasia or dysarthria Cranial nerve examination: PERRL, tongue midline, facial droop (Left facial droop) Detailed motor examination: other (He was able to move his arms and his legs) - Psychiatric Psychiatric: depressed Results - Laboratory Findings CBC and BMP: 03/02/17 03:35 03/02/17 03:35 Abnormal Lab Findings: Abnormal Labs 03/02/17 03/02/17 03/02/17 03:35 03:35 03:35 RBC 3.95 L Hgb 12.6 L Plt Count 130 L Lymphocytes # 0.8 L BUN 38 H Creatinine 1.40 H Glucose 140 H POC Glucose (mg/dL) Alkaline Phosphatase 147 H CK-MB (CK-2) 2.7 H* 03/02/17 03/02/17 11:53 16:23 RBC Hgb Plt Count Lymphocytes # BUN Creatinine Glucose POC Glucose (mg/dL) 139 H 146 H Alkaline Phosphatase CK-MB (CK-2) Assessment and Plan (1) Head injury, closed, with concussion Current Visit: Yes Status: Acute SNOMED Code(s): 47657490 (2) Severe dementia Current Visit: Yes Status: Chronic Code(s): F03.90 - UNSPECIFIED DEMENTIA WITHOUT BEHAVIORAL DISTURBANCE SNOMED Code(s): 11351722 (3) History of fall Current Visit: Yes Status: Acute SNOMED Code(s): 079846581 (4) Remote history of stroke Current Visit: Yes Status: Chronic SNOMED Code(s): 547857116 Plan: The patient is an 86-year-old man with multiple medical problems including diabetes atrial fib coronary artery disease dementia hypertension vascular disease hypothyroidism who presents to the hospital with fall. Neurologic exams of demonstrate severe dementia and left facial droop which may be old. Remote appearing right subcortical lacunar infarct on CT brain. Fall with scalp hematoma. Currently his mental status is at baseline. He of brain did not demonstrate any hemorrhage. Recommend continued neuro checks and EEG
[2017-03-02] MEDS: PRAVASTATIN SODIUM 80 MG TAB PO SCH (20:06)
[2017-03-02 21:15] LABS: Hemoglobin A1C 6.8 % (4.2-6.1)
[2017-03-03 00:05] LABS: Glucose,Whole Blood 148 mg/dL (75-99)
[2017-03-03] MEDS: INSULIN LISPRO (humaLOG) 300 UNIT/3 ML VIAL SQ SCH ×4 (00:12→17:10)
[2017-03-03] MEDS: hydrALAZINE HCL 20 MG/ML 1 ML VIAL IVP PRN ×2 (04:49→12:37)
[2017-03-03 05:58] LABS: Glucose,Whole Blood 175 mg/dL (75-99)
[2017-03-03] MEDS: LEVOTHYROXINE 25 MCG TAB PO SCH (06:13)
[2017-03-03] MEDS: METOPROLOL TARTRATE 25 MG TAB PO SCH (08:23)
[2017-03-03] MEDS: DOCUSATE 100 MG CAP PO SCH (08:23)
[2017-03-03] MEDS: FERROUS SULFATE 325 MG TAB PO SCH (08:23)
[2017-03-03] MEDS: LISINOPRIL 10 MG TAB PO SCH (08:23)
[2017-03-03] MEDS: CHOLECALCIFEROL 1,000 UNIT TAB PO SCH ×2 (08:23→12:35)
[2017-03-03] MEDS: ALLOPURINOL 100 MG TAB PO SCH (08:23)
[2017-03-03] MEDS: TAMSULOSIN 0.4 MG CAP.ER.24H PO SCH (08:23)
[2017-03-03] MEDS: ACETAMINOPHEN TAB 500 MG TAB PO SCH (08:24)
[2017-03-03 09:12] LABS: Basophils # (A) 0.1 k/uL (0-0.2); Basophils % (A) 1 %; CH 31.7; CHCM 31.8; Eosinophils # (A) 0.1 k/uL (0-0.7); Eosinophils % (A) 1 %; HCT 39.9 % (39.0-53.0); HGB 12.6 gm/dL (13.0-17.5); Luc # (Auto) 0.07; Luc % (Auto) 1; Lymphocytes # (A) 0.6 k/uL (1.0-4.8); Lymphocytes % (A) 7 %; MCH 31.6 pg (25.0-35.0); MCHC 31.5 g/dL (31.0-37.0); MCV 100.3 fL (80.0-100.0); Mean Platelet Volume 9.4; Monocytes # (A) 0.6 k/uL (0-1.0); Monocytes % (A) 7 %; Neutrophils # (A) 7.1 k/uL (1.3-7.7); Neutrophils % (A) 84 %; RBC 3.98 m/uL (4.30-5.90); RDW 13.3 % (11.5-15.5); WBC 8.5 k/uL (3.8-10.6); WBC (Perox) 8.43
[2017-03-03 09:20] LABS: Calcium 9.6 mg/dL (8.4-10.2); Potassium 4.6 mmol/L (3.5-5.1); Total Bilirubin 1.2 mg/dL (0.2-1.3); Total Protein 6.9 g/dL (6.3-8.2)
--- NOTE | 2017-03-03 09:52 | XR ---
EXAMINATION TYPE: XR chest 1V DATE OF EXAM: 03/03/2017 COMPARISON: 02/02/2017 HISTORY: Pain TECHNIQUE: Single frontal view of the chest is obtained. FINDINGS: There is a thoracic aortic aneurysm with ectasia of the aorta. Cardiomegaly and postoperat eleonora changes seen. Subsegmental atelectasis or infiltrate with tiny bilateral effusions. No pneumothorax or overt failur e. IMPRESSION: 1. Thoracic aortic aneurysm with bilateral areas of atelectasis or infiltrate and small pleural effus ion.
--- NOTE | 2017-03-03 10:45 | ECHOF ---
Referral Reason:LVF MEASUREMENTS -------- HEIGHT: 188.0 cm WEIGHT: 85.7 kg BP: 125/67 RVIDd: 2.9 cm (< 3.3) IVSd: 1.1 cm (0.6 - 1.1) LVIDd: 4.8 cm (3.9 - 5.3) LVPWd: 1.1 cm (0.6 - 1.1) IVSs: 1.7 cm LVIDs: 3.8 cm LVPWs: 1.4 cm LA Diam: 3.9 cm (2.7 - 3.8) LAESV Index (A-L): 33.90 ml/m Ao Diam: 4.2 cm (2.0 - 3.7) AV Cusp: 2.6 cm (1.5 - 2.6) MV EXCURSION: 14.230 mm (> 18.000) MV EF SLOPE: 37 mm/s (70 - 150) EPSS: 1.5 cm RAP: 5.00 mmHg RVSP: 45.50 mmHg FINDINGS -------- This was a technically good study. The left ventricular size is normal. There is borderline concentric left ventricular hypertrophy. Overall left ventricular systolic function is low-normal with, an EF between 50 - 55 %. Basal inferior LV wall motion is hypokinetic. Basal inferoseptal LV wall motion is hypokinetic. The right ventricle is normal in size. LA is moderately dilated 34-39 ml/m2 The right atrium is normal in size. There is mild aortic valve sclerosis. The mitral valve leaflets are mildly thickened. Mild mitral annular calcification present. There is trace to mild mitral regurgitation. Mild tricuspid regurgitation present. There is mild to moderate pulmonary hypertension. Trace/mild (physiologic) pulmonic regurgitation. The aortic root is dilated measuring 4.2cm. The inferior vena cava is mildly dilated. There is no pericardial effusion. CONCLUSIONS -------- 1. This was a technically good study. 2. There is mild aortic valve sclerosis. 3. The mitral valve leaflets are mildly thickened. 4. Mild mitral annular calcification present. 5. There is trace to mild mitral regurgitation. 6. Mild tricuspid regurgitation present. 7. There is mild to moderate pulmonary hypertension. 8. Trace/mild (physiologic) pulmonic regurgitation. 9. The aortic root is dilated measuring 4.2cm. 10. The inferior vena cava is mildly dilated. 11. There is no pericardial effusion. 12. The left ventricular size is normal. 13. There is borderline concentric left ventricular hypertrophy. 14. Overall left ventricular systolic function is low-normal with, an EF between 50 - 55 %. 15. Basal inferior LV wall motion is hypokinetic. 16. Basal inferoseptal LV wall motion is hypokinetic. 17. The right ventricle is normal in size. 18. LA is moderately dilated 34-39 ml/m2 19. The right atrium is normal in size. [employer] WORK[employer] APPRENTICE: Isabell Honeycutt RDCS
[2017-03-03 12:19] LABS: Glucose,Whole Blood 207 mg/dL (75-99)
[2017-03-03 12:20] LABS: Appearance,Urine Clear (Clear); Bilirubin,Urine Negative (Negative); Glucose,Urine (UA) Negative (Negative); Ketones,Urine Negative (Negative); Leukocyte Esterase,Urine Trace (Negative); Mucus,Urine Rare /hpf; Nitrite,Urine Negative (Negative); Particle Count 2669; Protein,Urine Trace (Negative); Specific Gravity,Urine 1.021 (1.001-1.035); Squamous Epithelial Cell,Urine 1 /hpf (0-4); UA Billing (MACRO vs. MICRO) MICRO; Urobilinogen,Urine <2.0 mg/dL (<2.0); WBC,Urine 4 /hpf (0-5)
[2017-03-03] MEDS: metroNIDAZOLE 500 MG TAB PO SCH ×3 (12:37→21:30)
[2017-03-03] MEDS ORDERED: LISINOPRIL 10 MG TAB PO ONE (13:30)
--- NOTE | 2017-03-03 13:31 | P.PN ---
Subjective Progress Note Date: 03/03/17 Principal diagnosis: Change in mental status status 86 years old male patient of Dr. 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 Patient is oriented 1 at baseline and requires assistance with food. He does walk with cane at his baseline. Patient presented to the emergency department from [facility] after an unwitnessed fall yesterday. Patient hit back of his head to the cabinet. Patient was sent by the attending physician for computed tomography scan. Computed tomography scan of the brain demonstrated no acute process no fracture but does have mild high left parietal scalp swelling suggestive of superficial hematoma without skull fracture. Cervical spine CT was negative for any acute process. CT of the thorax demonstrated an ascending aneurysm measuring 5.1 cm and a descending thoracic aneurysm with questionable diabetes dissection but the radiologist read. Patient was evaluated by cardiothoracic surgery who recommended medical treatment with no acute requirement of surgical treatment. On bedside evaluation, patient does not follow any commands. He answers questions yes or no. Family is not at bedside. Patient is not able to follow any commands which could be secondary to baseline confusion and worsening mental status. Unclear of the etiology of the fall neurology is consulted for possible stroke versus seizure. Further details will be obtained once the family is at bedside. 03/03 patient had 2 documented fever of 100.7. Patient appears at his baseline as per daughter. Chest x-ray suggestive of bilateral infiltrate and small pleural effusion but no consolidation. Urinalysis ordered which was negative for any infection. Blood cultures ordered. Patient had no febrile episode this morning. Speech evaluated the patient, recommended pureed diet with 1:1 supervision. Neurology assessed the patient, who recommneded EEG and continuous neuro checks. Blood pressure uncontrolled on the recent regimen, increase metoprolol to 100 mg twice a day with increase in lisinopril to 20 mg daily. Cardiology consulted for anticoagulation recomendation on discharge Objective - Vital Signs Vital signs: Vital Signs Temp 98.6 F 03/03/17 08:21 Pulse 70 03/03/17 12:16 Resp 16 03/03/17 12:16 BP 146/68 03/03/17 12:16 Pulse Ox 96 03/03/17 12:16 Intake & Output 03/02/17 03/03/17 03/03/17 18:59 06:59 18:59 Intake Total 120 0 Balance 120 0 Weight 86 kg 89 kg Intake: Oral 120 0 Other: # Voids 2 1 - Exam - Constitutional General appearance: average body habitus, mild distress - EENT Eyes: abnormal pupil (1-2 mm in size), PERRLA ENT: normal oropharynx - Neck Neck: no lymphadenopathy, normal ROM, no rigidity Carotids: bilateral: upstroke delayed - Respiratory Respiratory: bilateral: CTA, negative: diminished, dullness, rales, rhonchi - Cardiovascular Rhythm: irregularly irregular Heart sounds: normal: S1, S2 Abnormal Heart Sounds: systolic murmur, no diastolic murmur leg Peripheral Edema: bilateral: Trace, 3+ dorsalis pedis Peripheral Pulses: bilateral: Normal - Gastrointestinal General gastrointestinal: no distended, normal bowel sounds, no organomegaly, soft - Neurologic Pupils are equal and reactive, patient does not follow any commands, does answer yes to all the questions, stairs at the roof. Oriented 1 at baseline Does squeeze fingers in the right hand but is unable to make any movement. 2/5 in left upper extremity and lower extremity, 3/5 in the right upper extremity and lower extremity. Patient does not wiggle his toes on command. Slight murmur noted in the lower extremities on painful stimuli. Sensory deficit could not be assessed. Gait not if assessed coordination not assessed Babinski neutral. - Musculoskeletal Musculoskeletal: generalized weakness - Psychiatric Alert but not oriented - Labs CBC & Chem 7: 03/03/17 08:43 03/03/17 08:43 Labs: Abnormal Lab Results - Last 24 Hours (Table) 03/02/17 03/02/17 03/03/17 Range/Units 03:35 16:23 00:03 RBC (4.30-5.90) m/uL Hgb (13.0-17.5) gm/dL MCV (80.0-100.0) fL Plt Count (150-450) k/uL Lymphocytes # (1.0-4.8) k/uL BUN (9-20) mg/dL Creatinine (0.66-1.25) mg/dL Glucose (74-99) mg/dL POC Glucose (mg/dL) 146 H 148 H (75-99) mg/dL Hemoglobin A1c 6.8 H (4.2-6.1) % Urine Protein (Negative) Ur Leukocyte Esterase (Negative) Urine Mucus (None) /hpf 03/03/17 03/03/17 03/03/17 Range/Units 05:56 08:43 08:43 RBC 3.98 L (4.30-5.90) m/uL Hgb 12.6 L (13.0-17.5) gm/dL MCV 100.3 H (80.0-100.0) fL Plt Count 131 L (150-450) k/uL Lymphocytes # 0.6 L (1.0-4.8) k/uL BUN 35 H (9-20) mg/dL Creatinine 1.39 H (0.66-1.25) mg/dL Glucose 237 H (74-99) mg/dL POC Glucose (mg/dL) 175 H (75-99) mg/dL Hemoglobin A1c (4.2-6.1) % Urine Protein (Negative) Ur Leukocyte Esterase (Negative) Urine Mucus (None) /hpf 03/03/17 03/03/17 Range/Units 11:45 11:59 RBC (4.30-5.90) m/uL Hgb (13.0-17.5) gm/dL MCV (80.0-100.0) fL Plt Count (150-450) k/uL Lymphocytes # (1.0-4.8) k/uL BUN (9-20) mg/dL Creatinine (0.66-1.25) mg/dL Glucose (74-99) mg/dL POC Glucose (mg/dL) 207 H (75-99) mg/dL Hemoglobin A1c (4.2-6.1) % Urine Protein Trace H (Negative) Ur Leukocyte Esterase Trace H (Negative) Urine Mucus Rare H (None) /hpf Assessment and Plan Plan: #1 change in mental status with baseline dementia status post unwitnessed fall - Unclear to assess patient's baseline, no purposeful movement in any extremity - CT head was negative for any bleed but does have a hematoma in the left parietal scalp area - Neurology consulted, recommends EEG - Seizure precaution and fall precautions - elliquis and aspirin held secondary to hematoma - Continue pravastatin - Speech evaluation, on purred diet with 1:1 supervision - Carotid ultrasound positive for 50 - 69 % proximal ICA left - Neuro checks every 4 hours - It is possible that patient had another stroke as CT is not good image for ischemic stroke but patient baseline confusion and mental status is hindering in making that judgement. #2. Closed head concussion - held aslpirin and elliquis - Continue neurochecks and pravastatin #2 ascending aortic aneurysm 5.1 with questionable type II dissection in descending thoracic aorta - Home metoprolol dose increased to 100 mg by mouth twice a day with reduction in the lisinopril from 20 by mouth twice a day to 20 mg once daily - Goal systolic blood pressure less than 120 #3 chronic kidney disease stage II - Continue lisinopril at the reduced dose of 10 mg by mouth daily - Repeat BMP in a.m. #4 diabetes mellitus type 2 - Causes are 10 and glipizide while inpatient Continue insulin sliding scale #4 hyperlipidemia - Continue pravastatin 80 mg daily at bedtime #5 chronic atrial fibrillation - Patient has dementia and significant fall risk - This patient has a hematoma I would hold elliquis and aspirin while inpatient and would recommend sending patient home without eliquis, continue metoprolol 100 mg by mouth twice a day for heartrate controlled #6 benign prostate enlargement continue tamsulosin daily #7 Gout continue allopurinol 100 mg by mouth daily #8 coronary artery disease status post coronary artery bypass grafting - Hold aspirin due to hematoma, continue metoprolol, Lasix pravastatin and lisinopril - Echo ordered #Chronic pain - For tramadol for concern of seizures continue Tylenol for pain control #11 hypothyroidism continue levothyroxine #12 DVT prophylaxis continue mechanical prophylaxis #13 condition- stable #14 disposition- patient came from [facility], needs PT evaluation
[2017-03-03] MEDS: MAGNESIUM SULFATE-D5W PMX 1 GM in DEXTROSE/WATER 1 100ML.BAG IVPB SCH ×2 (16:11→17:13)
[2017-03-03 17:04] LABS: Glucose,Whole Blood 117 mg/dL (75-99)
--- NOTE | 2017-03-03 20:31 | P.PN ---
Subjective Progress Note Date: 03/03/17 Patient is an 86-year-old man who [facility]. He has dementia. He is more alert and cooperative today. He denies any headache. He did suffer a fall with closed head injury. There was no evidence of intracranial bleed. He did have a superficial hematoma. The patient is following some commands but does have some baseline dementia. No focal weakness in his arms can be detected. Objective - Vital Signs Vital signs: Vital Signs Temp 98.1 F 03/03/17 16:10 Pulse 62 03/03/17 16:10 Resp 16 03/03/17 16:10 BP 112/52 03/03/17 16:10 Pulse Ox 92 L 03/03/17 16:10 Intake & Output 03/03/17 03/03/17 03/04/17 06:59 18:59 06:59 Intake Total 0 240 Output Total 400 Balance 0 -160 Weight 89 kg Intake: Oral 0 240 Output: Urine 400 Other: # Voids 1 # Bowel Movements 0 - Constitutional General appearance: Present: average body habitus - EENT Eyes: Present: EOMI, PERRLA ENT: Present: hearing grossly normal - Respiratory Respiratory: bilateral: CTA - Cardiovascular Rhythm: regular - Neurologic Neurologic Comment(s): Mental status he was awake alert and oriented to person only . There was no a aphasia Neurologic: Present: CNII-XII intact - Musculoskeletal Musculoskeletal: Present: generalized weakness - Labs CBC & Chem 7: 03/03/17 08:43 03/03/17 08:43 Labs: Abnormal Lab Results - Last 24 Hours (Table) 03/02/17 03/03/17 03/03/17 Range/Units 03:35 00:03 05:56 RBC (4.30-5.90) m/uL Hgb (13.0-17.5) gm/dL MCV (80.0-100.0) fL Plt Count (150-450) k/uL Lymphocytes # (1.0-4.8) k/uL BUN (9-20) mg/dL Creatinine (0.66-1.25) mg/dL Glucose (74-99) mg/dL POC Glucose (mg/dL) 148 H 175 H (75-99) mg/dL Hemoglobin A1c 6.8 H (4.2-6.1) % Troponin I (0.000-0.034) ng/mL Urine Protein (Negative) Ur Leukocyte Esterase (Negative) Urine Mucus (None) /hpf 03/03/17 03/03/17 03/03/17 Range/Units 08:43 08:43 11:45 RBC 3.98 L (4.30-5.90) m/uL Hgb 12.6 L (13.0-17.5) gm/dL MCV 100.3 H (80.0-100.0) fL Plt Count 131 L (150-450) k/uL Lymphocytes # 0.6 L (1.0-4.8) k/uL BUN 35 H (9-20) mg/dL Creatinine 1.39 H (0.66-1.25) mg/dL Glucose 237 H (74-99) mg/dL POC Glucose (mg/dL) (75-99) mg/dL Hemoglobin A1c (4.2-6.1) % Troponin I (0.000-0.034) ng/mL Urine Protein Trace H (Negative) Ur Leukocyte Esterase Trace H (Negative) Urine Mucus Rare H (None) /hpf 03/03/17 03/03/17 03/03/17 Range/Units 11:59 13:32 16:48 RBC (4.30-5.90) m/uL Hgb (13.0-17.5) gm/dL MCV (80.0-100.0) fL Plt Count (150-450) k/uL Lymphocytes # (1.0-4.8) k/uL BUN (9-20) mg/dL Creatinine (0.66-1.25) mg/dL Glucose (74-99) mg/dL POC Glucose (mg/dL) 207 H 117 H (75-99) mg/dL Hemoglobin A1c (4.2-6.1) % Troponin I 0.039 H* (0.000-0.034) ng/mL Urine Protein (Negative) Ur Leukocyte Esterase (Negative) Urine Mucus (None) /hpf 03/03/17 Range/Units 19:02 RBC (4.30-5.90) m/uL Hgb (13.0-17.5) gm/dL MCV (80.0-100.0) fL Plt Count (150-450) k/uL Lymphocytes # (1.0-4.8) k/uL BUN (9-20) mg/dL Creatinine (0.66-1.25) mg/dL Glucose (74-99) mg/dL POC Glucose (mg/dL) (75-99) mg/dL Hemoglobin A1c (4.2-6.1) % Troponin I 0.052 H* (0.000-0.034) ng/mL Urine Protein (Negative) Ur Leukocyte Esterase (Negative) Urine Mucus (None) /hpf Assessment and Plan (1) Head injury, closed, with concussion Current Visit: Yes Status: Acute SNOMED Code(s): 42646441 (2) Severe dementia Current Visit: Yes Status: Chronic Code(s): F03.90 - UNSPECIFIED DEMENTIA WITHOUT BEHAVIORAL DISTURBANCE SNOMED Code(s): 35994957 (3) History of fall Current Visit: Yes Status: Acute SNOMED Code(s): 772253917 (4) Remote history of stroke Current Visit: Yes Status: Chronic SNOMED Code(s): 983417431 Plan: The patient is an 86-year-old man admitted to the hospital with a fall. He suffered some scalp swelling. The patient is more alert and cooperative today. He does have a baseline dementia. There is no evidence of an acute stroke. Recommend physical therapy
[2017-03-03 21:27] LABS: Glucose,Whole Blood 179 mg/dL (75-99)
[2017-03-03] MEDS: METOPROLOL TARTRATE 50 MG TAB PO SCH (21:30)
[2017-03-03] MEDS: PRAVASTATIN SODIUM 80 MG TAB PO SCH (21:30)
--- NOTE | 2017-03-03 22:53 | EEG ---
ELECTROENCEPHALOGRAM REPORT INTERPRETING PHYSICIAN: Collin Sung M.D. INDICATION FOR EXAMINATION: This patient is an 86-year-old male being evaluated for recent fall and possible syncope. Patient also with involuntary movements and history of dementia. AGE: 86 EEG FINDINGS: A routine 21-channel awake digital EEG recording was accomplished utilizing the 10-20 international system with bipolar and referential montages. The background activity in the most alert resting state consists of a low to medium amplitude, poorly developed and poorly sustained 6 Hertz activity over the posterior head regions. This posterior rhythm attenuates minimally to eye opening. There is a small amount of low amplitude 18-20 Hertz beta activity seen maximally over the anterior head regions. Muscle and movement artifact was observed on a few occasions during the tracing. Hyperventilation was not performed. Photic stimulation at flash frequencies of 2-30 Hertz produced a minimal occipital driving response. No epileptiform discharges were seen. IMPRESSION: This EEG is moderately abnormal in diffuse fashion due to slowing of the EEG background. The EEG failed to reveal any focal, lateralized, or epileptiform abnormalities. If clinically indicated a follow-up EEG is recommended. Clinical correlation is recommended. MMODL / IJN: [id number] /
[2017-03-04 04:36] VITALS: RESP 17
[2017-03-04] MEDS: LEVOTHYROXINE 25 MCG TAB PO SCH (06:14)
[2017-03-04 06:16] LABS: Glucose,Whole Blood 155 mg/dL (75-99)
[2017-03-04] MEDS: INSULIN LISPRO (humaLOG) 300 UNIT/3 ML VIAL SQ SCH ×2 (06:21→14:59)
[2017-03-04 08:08] VITALS: TEMP 98.7
[2017-03-04] MEDS ORDERED: LISINOPRIL 20 MG TAB PO SCH (09:00)
[2017-03-04] MEDS: FUROSEMIDE 40 MG TAB PO SCH (09:01)
[2017-03-04] MEDS: ALLOPURINOL 100 MG TAB PO SCH (09:01)
[2017-03-04] MEDS: DOCUSATE 100 MG CAP PO SCH (09:01)
[2017-03-04] MEDS: METOPROLOL TARTRATE 50 MG TAB PO SCH (09:01)
[2017-03-04] MEDS: FERROUS SULFATE 325 MG TAB PO SCH (09:02)
[2017-03-04] MEDS: metroNIDAZOLE 500 MG TAB PO SCH (09:02)
[2017-03-04] MEDS: TAMSULOSIN 0.4 MG CAP.ER.24H PO SCH (09:02)
[2017-03-04] MEDS: CHOLECALCIFEROL 1,000 UNIT TAB PO SCH (09:02)
[2017-03-04] MEDS: ACETAMINOPHEN TAB 500 MG TAB PO SCH (09:04)
--- NOTE | 2017-03-04 10:24 | P.DS ---
Providers Date of admission: 03/03/17 10:45 Expected date of discharge: 03/04/17 Attending physician: Kaiden Khan Consults: 03/02/17 10:49 Consult Physician Routine Consulting Provider: Lisseth Sung Consult Reason/Comments: mental status changes, eval fall and stroke Do you want consulting provider notified?: Yes 03/02/17 11:08 Consult Physician Routine Consulting Provider: Jerod Sorensen Consult Reason/Comments: (Already aware of consult) fall & ascending thoracic aneurysm Do you want consulting provider notified?: Already Contacted 03/03/17 13:29 Consult Physician Routine Consulting Provider: Edouard Parks Consult Reason/Comments: anticoaguation recommendation for atrial fibrillation, Hematoma s/p fall Do you want consulting provider notified?: Yes Primary care physician: Kaiden Khan Hospital Course: 86 years old male patient of Dr. 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 Patient is oriented 1 at baseline and requires assistance with food. He does walk with cane at his baseline. Patient presented to the emergency department from [facility] after an unwitnessed fall yesterday. Patient hit back of his head to the cabinet. Patient was sent by the attending physician for computed tomography scan. Computed tomography scan of the brain demonstrated no acute process no fracture but does have mild high left parietal scalp swelling suggestive of superficial hematoma without skull fracture. Cervical spine CT was negative for any acute process. CT of the thorax demonstrated an ascending aneurysm measuring 5.1 cm and a descending thoracic aneurysm with questionable diabetes dissection but the radiologist read. Patient was evaluated by cardiothoracic surgery who recommended medical treatment with no acute requirement of surgical treatment. On bedside evaluation, patient does not follow any commands. He answers questions yes or no. Family is not at bedside. Patient is not able to follow any commands which could be secondary to baseline confusion and worsening mental status. Unclear of the etiology of the fall neurology is consulted for possible stroke versus seizure. Further details will be obtained once the family is at bedside. 03/03 patient had 2 documented fever of 100.7. Patient appears at his baseline as per daughter. Chest x-ray suggestive of bilateral infiltrate and small pleural effusion but no consolidation. Urinalysis ordered which was negative for any infection. Blood cultures ordered. Patient had no febrile episode this morning. Speech evaluated the patient, recommended pureed diet with 1:1 supervision. Neurology assessed the patient, who recommneded EEG and continuous neuro checks. Blood pressure uncontrolled on the recent regimen, increase metoprolol to 100 mg twice a day with increase in lisinopril to 20 mg daily. Cardiology consulted for anticoagulation recomendation on discharge 03/04: Patient is being prepared for discharge back to [facility]. Aspirin will be resumed. Patient has been seen by Dr. Caretr from cardiology and has recommended resuming eliquis the current dose. Patient's mental status is much improved today. He remains at his baseline confusion from dementia. Note that metoprolol was increased to 100 mg twice daily and lisinopril is back to 20 mg twice daily at the time of discharge. Discharge diagnoses: #1 metabolic encephalopathy with baseline dementia status post unwitnessed fall #2. Closed head concussion #3 ascending aortic aneurysm 5.1 with questionable type II dissection in descending thoracic aorta #4 chronic kidney disease stage II #5 diabetes mellitus type 2 #6 hyperlipidemia #7 chronic atrial fibrillation #8 benign prostate enlargement #9 Gout, unspecified #10 coronary artery disease status post coronary artery bypass grafting #11Chronic pain #12 hypothyroidism continue levothyroxine Discharge plan: Return to [facility] under the care of Dr. Khan Impression and plan of care have been directed as dictated by the signing physician. Tawny Mason nurse practitioner acting as scribe for signing physician. Patient Condition at Discharge: Good Plan - Discharge Summary New Discharge Prescriptions: New Metoprolol Tartrate [Lopressor] 100 mg PO BID tab Continue Lisinopril [Prinivil] 20 mg PO BID@0800,2000 Aspirin 81 mg PO DAILY Allopurinol [Zyloprim] 100 mg PO DAILY Acetaminophen [Tylenol] 500 mg PO DAILY Apixaban [Eliquis] 2.5 mg PO BID tablet Multivitamin/Iron/Folic Acid [Centrum Complete Multivit Tab] 1 tab PO DAILY Docusate [Colace] 100 mg PO DAILY cap Tamsulosin [Flomax] 0.4 mg PO DAILY cap.er.24h glipiZIDE [Glucotrol] 5 mg PO BID Pravastatin Sodium 80 mg PO HS Levothyroxine Sodium [Synthroid] 25 mcg PO DAILY sitaGLIPtin [Januvia] 50 mg PO DAILY Sennosides-Docusate Sodium [Senokot-S] 1 tab PO BID PRN PRN Reason: Constipation Magnesium Hydroxide [Milk of Magnesia] 2,400 mg PO Q72H PRN PRN Reason: Constipation Furosemide [Lasix] 40 mg PO MOWEFR Ferrous Sulfate [Iron (65 MG Elemental)] 325 mg PO DAILY Cholecalciferol [Vitamin D3] 2,000 unit PO DAILY traMADol HCL [Ultram] 50 mg PO Q4HR PRN #60 tablet PRN Reason: Pain Discontinued Metoprolol Tartrate [Lopressor] 50 mg PO BID Discharge Medication List Allopurinol [Zyloprim] 100 mg PO DAILY 09/04/14 [History] Aspirin 81 mg PO DAILY 09/04/14 [History] Lisinopril [Prinivil] 20 mg PO BID@0800,2000 09/04/14 [History] Acetaminophen [Tylenol] 500 mg PO DAILY 12/06/14 [History] Apixaban [Eliquis] 2.5 mg PO BID tablet 12/26/14 [Rx] Multivitamin/Iron/Folic Acid [Centrum Complete Multivit Tab] 1 tab PO DAILY [History] Docusate [Colace] 100 mg PO DAILY cap 04/25/15 [Rx] Tamsulosin [Flomax] 0.4 mg PO DAILY cap.er.24h 04/25/15 [Rx] glipiZIDE [Glucotrol] 5 mg PO BID 04/30/15 [History] Levothyroxine Sodium [Synthroid] 25 mcg PO DAILY 06/11/15 [History] Pravastatin Sodium 80 mg PO HS 06/11/15 [History] Cholecalciferol [Vitamin D3] 2,000 unit PO DAILY 02/02/17 [History] Ferrous Sulfate [Iron (65 MG Elemental)] 325 mg PO DAILY 02/02/17 [History] Furosemide [Lasix] 40 mg PO MOWEFR 02/02/17 [History] Magnesium Hydroxide [Milk of Magnesia] 2,400 mg PO Q72H PRN 02/02/17 [History] Sennosides-Docusate Sodium [Senokot-S] 1 tab PO BID PRN 02/02/17 [History] sitaGLIPtin [Januvia] 50 mg PO DAILY 02/02/17 [History] Metoprolol Tartrate [Lopressor] 100 mg PO BID tab 03/04/17 [Rx] traMADol HCL [Ultram] 50 mg PO Q4HR PRN #60 tablet 03/04/17 [Rx] Follow up Appointment(s)/Referral(s): Kaiden Kahn MD [Primary Care Provider] - 1 Week (at [facility]) Discharge Disposition: TRANSFER TO SNF/ECF
[2017-03-04 11:42] VITALS: BP 112/60; PULSE 78
[2017-03-04 11:50] LABS: Glucose,Whole Blood 185 mg/dL (75-99)
--- NOTE | 2017-03-04 12:20 | P.CRDCN ---
History of Present Illness Consult date: 03/04/17 Requesting physician: Matthew Amaya Reason for Consult (text): anticoagulation recommendations upon discharge Chief complaint: Fall History of present illness: This is an 86-year-old gentleman with history of dementia who is oriented 1 only. I was unable to obtain a review of systems in HPI was obtained from the chart. Patient presented to the hospital from medical [place] of poor urine after sustaining a fall. Patient has a history of atrial fibrillation and was on Eliquis as an outpatient. He also has a known history of coronary artery disease, high failure, dementia, diabetes, hypertension, at baseline he is oriented 1 and apparently walks with a cane. Cardiology was placed on consult for recommendations for anticoagulation as an outpatient. Patient did sustain a hematoma to his left parietal scalp area without any intracranial hemorrhage noted on CT. Patient also underwent CT of the thorax that demonstrated an ascending aneurysm measuring 5.1 cm and a descending thoracic aneurysm with questionable dissection and he was apparently evaluated by cardiothoracic surgery who recommended medical treatment and no acute requirement of surgical treatment. Since admission, his anticoagulation and aspirin has been placed on hold. Upon examination, patient is lying in bed with eyes closed, opens eyes to verbal stimuli with no verbal interaction. He was not cooperative with physical exam. Past Medical History Past Medical History: Atrial Fibrillation, Atrial Flutter, Coronary Artery Disease (CAD), Heart Failure, Dementia, Diabetes Mellitus, Hyperlipidemia, Hypertension, Memory Impairment, Myocardial Infarction ([place]), Osteoarthritis (OA) , Prostate Disorder, Renal Disease, Skin Disorder, Thyroid Disorder, Vascular Disorder Additional Past Medical History / Comment(s): ALZHEIMER'S, SACRAL PRESSURE ULCER., GOUT, PVD/PAD. , PT USES WHEELCHAIR BUT CAN WALK -USES WALKER., Last Myocardial Infarction Date:: [id number]? History of Any Multi-Drug Resistant Organisms: MRSA Date of last positivie culture/infection: 06/06/15 MDRO Source:: Back-Sacral Area Past Surgical History: Appendectomy, Coronary Bypass/CABG, Heart Catheterization , Tonsillectomy Additional Past Surgical History / Comment(s): 04-21-15 RT FEMORAL TO POST TIBIAL IN SITU BYPASS GRAFT., KWADWO, 2000 Triple CABG , MITRAL VALVE REPAIR. Past Anesthesia/Blood Transfusion Reactions: No Reported Reaction Past Psychological History: No Psychological Hx Reported Smoking Status: Never smoker Past Alcohol Use History: None Reported Past Drug Use History: None Reported - Past Family History Father Family Medical History: No Reported History Mother Family Medical History: No Reported History Brother(s) Family Medical History: No Reported History Sister(s) Family Medical History: No Reported History Daughter(s) Family Medical History: No Reported History Son(s) Family Medical History: No Reported History Medications and Allergies Home Medications Medication Instructions Recorded Confirmed Type Allopurinol [Zyloprim] 100 mg PO DAILY 09/04/14 03/02/17 History Aspirin 81 mg PO DAILY 09/04/14 03/02/17 History Lisinopril [Prinivil] 20 mg PO BID@0800,199909/04/14 03/02/17 History Acetaminophen [Tylenol] 500 mg PO DAILY 12/06/14 03/02/17 History Apixaban [Eliquis] 2.5 mg PO BID tablet 12/26/14 03/02/17 Rx Multivitamin/Iron/Folic Acid 1 tab PO DAILY 04/02/15 03/02/17 History [Centrum Complete Multivit Tab] Docusate [Colace] 100 mg PO DAILY cap 04/25/15 03/02/17 Rx Tamsulosin [Flomax] 0.4 mg PO DAILY cap.er.24h 04/25/15 03/02/17 Rx glipiZIDE [Glucotrol] 5 mg PO BID 04/30/15 03/02/17 History Levothyroxine Sodium [Synthroid] 25 mcg PO DAILY 06/11/15 03/02/17 History Pravastatin Sodium 80 mg PO HS 06/11/15 03/02/17 History Cholecalciferol [Vitamin D3] 2,000 unit PO DAILY 02/02/17 03/02/17 History Ferrous Sulfate [Iron (65 MG 325 mg PO DAILY 02/02/17 03/02/17 History Elemental)] Furosemide [Lasix] 40 mg PO MOWEFR 02/02/17 03/02/17 History Magnesium Hydroxide [Milk of 2,400 mg PO Q72H PRN 02/02/17 03/02/17 History Magnesia] Sennosides-Docusate Sodium 1 tab PO BID PRN 02/02/17 03/02/17 History [Senokot-S] sitaGLIPtin [Januvia] 50 mg PO DAILY 02/02/17 03/02/17 History Metoprolol Tartrate [Lopressor] 100 mg PO BID tab 03/04/17 Rx traMADol HCL [Ultram] 50 mg PO Q4HR PRN #60 tablet 03/04/17 Rx Allergies Allergy/AdvReac Type Severity Reaction Status Date / Time codeine Allergy Rash/Hives Verified 03/02/17 07:38 Physical Exam Vitals: Vital Signs Temp Pulse Resp BP Pulse Ox 03/04/17 08:00 98.7 F 76 17 146/84 95 03/04/17 04:00 96.8 F L 68 17 143/77 96 03/04/17 00:00 97.4 F L 102 H 16 133/75 93 L 03/03/17 20:00 98.0 F 88 18 110/48 92 L 03/03/17 16:10 98.1 F 62 16 112/52 92 L 03/03/17 16:05 16 03/03/17 12:16 70 16 146/68 96 03/03/17 12:15 16 Intake and Output 03/03/17 03/04/17 03/04/17 22:59 06:59 14:59 Intake Total 120 120 Balance 120 120 Intake: Oral 120 120 Other: # Voids 1 1 Weight 93 kg PHYSICAL EXAMINATION: HEENT: Pupils equal, round. Neck is supple. There is no elevated jugular venous pressure. HEART EXAMINATION: Heart sounds irregularly irregular, S1 and S2 with a systolic murmur. CHEST EXAMINATION: Lungs reveal diminished air entry with scattered rhonchi anteriorly. ABDOMEN: Soft. Bowel sounds are heard. No organomegaly noted. EXTREMITIES: 2+ peripheral pulses with evidence of 2+ peripheral edema. NEUROLOGIC patient is oriented x1. . Results 03/03/17 08:43 03/03/17 08:43 Cardiac Enzymes 03/03/17 03/03/17 03/04/17 Range/Units 13:32 19:02 01:02 Troponin I 0.039 H* 0.052 H* 0.048 H* (0.000-0.034) ng/mL Current Medications Generic Name Dose Route Start Last Admin Trade Name Freq PRN Reason Stop Dose Admin Acetaminophen 500 mg 03/03/17 09:00 03/04/17 09:04 Tylenol Tab PO 500 mg DAILY ALEC Administration Allopurinol 100 mg 03/03/17 09:00 03/04/17 09:01 Zyloprim PO 100 mg DAILY ALEC Administration Cholecalciferol 2,000 unit 03/03/17 12:00 03/04/17 09:02 Vitamin D3 PO 2,000 unit 1200 ALEC Administration Docusate Sodium 100 mg 03/03/17 09:00 03/04/17 09:01 Colace PO 100 mg DAILY ALEC Administration Ferrous Sulfate 325 mg 03/03/17 12:00 03/04/17 09:02 Feosol PO 325 mg 1200 ALEC Administration Furosemide 40 mg 03/02/17 11:00 03/04/17 09:01 Lasix PO 40 mg MoWeFr@0900 ALEC Administration Hydralazine HCl 10 mg 03/02/17 18:50 03/03/17 12:37 Apresoline IVP 10 mg Q6HR PRN Administration Blood Pressure - High Ceftriaxone Sodium 1,000 mg/ 50 mls @ 100 mls/hr 03/03/17 09:00 03/04/17 09: 04 Sodium Chloride IVPB 100 mls/hr Q24HR ALEC Administration Insulin Human Lispro 0 unit 03/03/17 17:30 03/04/17 06:21 Humalog SQ 1 unit AC-TID ALEC Administration Protocol Levothyroxine Sodium 25 mcg 03/03/17 06:30 03/04/17 06:14 Synthroid PO 25 mcg 0630 ALEC Administration Lisinopril 20 mg 03/04/17 09:00 03/04/17 09:01 Zestril PO 20 mg DAILY ALEC Administration Magnesium Hydroxide 2,400 mg 03/02/17 10:42 Milk Of Magnesia PO Q72H PRN Constipation Metoprolol Tartrate 100 mg 03/03/17 21:00 03/04/17 09:01 Lopressor PO 100 mg BID ALEC Administration Metronidazole 500 mg 03/03/17 09:00 03/04/17 09:02 Flagyl PO 500 mg TID LAEC Administration Pravastatin Sodium 80 mg 03/02/17 21:00 03/03/17 21:30 Pravachol PO 80 mg HS [facility] Administration Senna/Docusate Sodium 1 each 03/02/17 10:42 Senokot-S PO BID PRN Constipation Tamsulosin HCl 0.4 mg 03/03/17 09:00 03/04/17 09:02 Flomax PO 0.4 mg DAILY ALEC Administration Intake and Output 03/03/17 03/04/17 03/04/17 22:59 06:59 14:59 Intake Total 120 120 Balance 120 120 Intake: Oral 120 120 Other: # Voids 1 1 Weight 93 kg 03/03/17 08:43 03/03/17 08:43 Assessment and Plan Assessment: Assessment and plan 1 history of chronic atrial fibrillation, previously anticoagulated on Eliquis #2 coronary artery disease with prior coronary artery bypass grafting, aspirin on hold #3 chronic kidney disease #4 hyperlipidemia #5 descending thoracic aortic aneurysm #6 status post fall with hematoma in the left parietal scalp area #7 altered mental status From cardiology's perspective, if hematoma remains stable eliquis may be resumed in 2 days at 2.5 mg BID. Discontinue aspirin. Ok for discharge to [facility] from our standpoint. [employer] note has been reviewed, I agree with a documented findings and plan of care. Patient was seen and examined.
== END 2017-03-04 16:31 | DRG 71 ==
LOC: EC 02:36 → 6SEL 09:55 → OBSVTOIN 03-03 10:45
PROVIDERS: ADMIT Internal Medicine; ATTEND Internal Medicine
DX: G93.41 Metabolic encephalopathy (principal); S06.0X9A Concussion with loss of consciousness of unspecified duration, initial encounter; E11.22 Type 2 diabetes mellitus with diabetic chronic kidney disease; E11.51 Type 2 diabetes mellitus with diabetic peripheral angiopathy without gangrene; I13.0 Hypertensive heart and chronic kidney disease with heart failure and stage 1 through stage 4 chronic kidney disease, or unspecified chronic kidney disease; I48.92 Unspecified atrial flutter; I50.9 Heart failure, unspecified; I71.2 Thoracic aortic aneurysm, without rupture; I48.2 Chronic atrial fibrillation; I27.20 Pulmonary hypertension, unspecified; G30.9 Alzheimer's disease, unspecified; F02.80 Dementia in other diseases classified elsewhere, unspecified severity, without behavioral disturbance, psychotic disturbance, mood disturbance, and anxiety; N18.2 Chronic kidney disease, stage 2 (mild); E78.5 Hyperlipidemia, unspecified; S00.03XA Contusion of scalp, initial encounter; N40.0 Benign prostatic hyperplasia without lower urinary tract symptoms; I25.10 Atherosclerotic heart disease of native coronary artery without angina pectoris; G89.29 Other chronic pain; E03.9 Hypothyroidism, unspecified; M19.91 Primary osteoarthritis, unspecified site; I65.22 Occlusion and stenosis of left carotid artery; I25.2 Old myocardial infarction; M10.9 Gout, unspecified; Z95.1 Presence of aortocoronary bypass graft; Z79.01 Long term (current) use of anticoagulants; Z79.82 Long term (current) use of aspirin; Z79.84 Long term (current) use of oral hypoglycemic drugs; Z79.899 Other long term (current) drug therapy; Z95.2 Presence of prosthetic heart valve; Z91.81 History of falling; Z86.73 Personal history of transient ischemic attack (TIA), and cerebral infarction without residual deficits; Z86.14 Personal history of Methicillin resistant Staphylococcus aureus infection; Z88.5 Allergy status to narcotic agent; W01.190A Fall on same level from slipping, tripping and stumbling with subsequent striking against furniture, initial encounter; Y92.129 Unspecified place in nursing home as the place of occurrence of the external cause
CPT/HCPCS: 36415; 70450; 71010; 71275; 72125; 75635; 80053; 81001; 82550; 82553; 83036; 83735; 84484; 85025; 87040; 93005; 93306; 93880; 95819; 99285